=== PATIENT | female | born 1960 | race Caucasian/White ===

== ENCOUNTER → 2021-08-15 | Outpatient (CLI) | payer OTHER ==
--- NOTE | 2021-08-15 19:26 | P.STRESS ---
- Stress Test Note Stress Test Results/Findings: Exam Performed: stress echo exercise Exam Date: 08/15/21 Reason for Exam: DIZZINESS Height: 5 ft 7 in Weight: 221 kg Protocol: DANELLE Stage: 3 Duration of Exercise: 5:30 Resting Heart Rate: 73 Resting Blood Pressure: 128/77 Maximum Achieved Heart Rate: 138 Maximum Achieved Blood Pressure: 163/95 85% PMHR: 137 100% PMHR: 161 METS: 2.4 Technologist Comment: Stress Test Results/Findings: Baseline heart rate 73 beats a minute, Baseline blood pressure 128/77 mmHg Baseline 12-lead EKG shows sinus rhythm normal ME narrow QRS no epsilon waves no T-wave inversions in the precordial leads Patient exercised on a Danelle protocol for 5 minutes 30 seconds Peak heart rate 130 beats a minute Normal blood pressure response Very frequent PVCs in a bigeminal pattern noted These appear to be outflow tract PVCs from the right ventricle, left bundle branch block morphology There was no ECG ms for ischemia No nonsustained ventricular tachycardia was noted This time echo images showed normal LV size and systolic function without segmental wall motion abnormalities At peak exercise there was excellent augmentation of overall LV contractility without developer any wall motion abnormalities @Recovery regional global LV systolic function within normal Frequent PVCs were noted during peak exercise These resolved@recovery Impression Average exercise capacity No ECG or echo cardiographic evidence of ischemia Very frequent RVOT PVCs with exercise
--- NOTE | 2021-08-16 15:35 | EST ---
Stress Test Results/Findings: Exam Performed: stress echo exercise Exam Date: 08/15/21 Reason for Exam: DIZZINESS Height: 5 ft 7 in Weight: 221 kg Protocol: DANELLE Stage: 3 Duration of Exercise: 5:30 Resting Heart Rate: 73 Resting Blood Pressure: 128/77 Maximum Achieved Heart Rate: 138 Maximum Achieved Blood Pressure: 163/95 85% PMHR: 137 100% PMHR: 161 METS: 2.4 Technologist Comment: Stress Test Results/Findings: Baseline heart rate 73 beats a minute, Baseline blood pressure 128/77 mmHg Baseline 12-lead EKG shows sinus rhythm normal MI narrow QRS no epsilon waves no T-wave inversions in the precordial leads Patient exercised on a Danelle protocol for 5 minutes 30 seconds Peak heart rate 130 beats a minute Normal blood pressure response Very frequent PVCs in a bigeminal pattern noted These appear to be outflow tract PVCs from the right ventricle, left bundle branch block morphology There was no ECG ms for ischemia No nonsustained ventricular tachycardia was noted This time echo images showed normal LV size and systolic function without segmental wall motion abnormalities At peak exercise there was excellent augmentation of overall LV contractility without developer any wall motion abnormalities @Recovery regional global LV systolic function within normal Frequent PVCs were noted during peak exercise These resolved@recovery Impression Average exercise capacity No ECG or echo cardiographic evidence of ischemia Very frequent RVOT PVCs with exercise MTDD
== END | disposition home or self-care (01) ==
LOC: RADNMMAIN 09:39
PROVIDERS: ATTEND Family Medicine
DX: I49.3 Ventricular premature depolarization (principal)
CPT/HCPCS: 93351